=== PATIENT | female | born 1985 | race Caucasian/White ===

== ENCOUNTER → 2017-11-06 | Outpatient (REF) | payer MEDICAID | LOC: M LAB REF 12:05 | DX: F11.21 Opioid dependence, in remission (principal) ==

== ENCOUNTER → 2017-11-07 | Outpatient (CLI) | payer MEDICAID | LOC: M OUTALCOH 07:57 | DX: F11.20 Opioid dependence, uncomplicated (principal) ==

== ENCOUNTER → 2017-11-12 | Outpatient (REF) | payer MEDICAID ==
[2017-11-12 15:53] LABS: BASO # 0.1 10^3/uL (0.0-0.2); BASO % 0.7 % (0.0-1.0); EOS # 0.7 10^3/uL (0.0-0.50); EOS % 10.4 % (0.0-3.0); HEMATOCRIT 43.8 % (36.0-47.0); HEMOGLOBIN 14.5 g/dl (12.0-16.0); IMMATURE GRANULOCYTE % 0.3 % (0-3.0); LYMPH # 2.2 10^3/uL (1.5-4.5); LYMPH % 32.3 % (24.0-44.0); MEAN CORPUSCULAR HEMOGLOBIN 30.6 pg (27.0-33.0); MEAN CORPUSCULAR HGB CONC 33.1 g/dl (32.0-36.5); MEAN CORPUSCULAR VOLUME 92.4 fl (80.0-96.0); MONO # 0.6 10^3/uL (0.0-0.8); MONO % 8.8 % (0.0-5.0); NEUTROPHILS # 3.2 10^3/uL (1.8-7.7); NEUTROPHILS % 47.5 % (36.0-66.0); PLATELET COUNT, AUTOMATED 210 10^3/uL (150-450); RED BLOOD COUNT 4.74 10^6/uL (4.00-5.40); RED CELL DISTRIBUTION WIDTH 13.3 % (11.5-14.5); WHITE BLOOD COUNT 6.7 10^3/uL (4.0-10.0)
[2017-11-12 16:11] LABS: ALBUMIN/GLOBULIN RATIO 1.18 (1.00-1.93); ALKALINE PHOSPHATASE 73 U/L (45-117); ALT/SGPT 30 U/L (12-78); ANION GAP 4 MEQ/L (8-16); AST/SGOT 37 U/L (7-37); BILIRUBIN,TOTAL 0.5 MG/DL (0.2-1.0); BLOOD UREA NITROGEN 23 MG/DL (7-18); CALCIUM LEVEL 8.9 MG/DL (8.5-10.1); CARBON DIOXIDE LEVEL 30 MEQ/L (21-32); CHLORIDE LEVEL 101 MEQ/L (98-107); CREATININE FOR GFR 0.71 MG/DL (0.55-1.30); GLOMERULAR FILTRATION RATE > 60.0 (>60); GLUCOSE, FASTING 61 MG/DL (70-100); SODIUM LEVEL 135 MEQ/L (136-145); TOTAL PROTEIN 7.4 GM/DL (6.4-8.2)
[2017-11-12 16:19] LABS: POTASSIUM SERUM 5.2 MEQ/L (3.5-5.1)
[2017-11-15 08:06] LABS: HEPATITIS A IgG TOTAL Negative (Negative); HEPATITIS C QUANTITATION HCV Not Detected IU/mL (.)
== END ==
LOC: M SFHCPLAZ 12:25
DX: B18.2 Chronic viral hepatitis C (principal)

== ENCOUNTER → 2017-11-14 | Outpatient (REF) | payer MEDICAID ==
[2017-11-24 00:08] LABS: AMPHETAMINE SCREEN, URINE Negative ng/mL (Cutoff=1000); BARBITURATES SCREEN, URINE Negative ng/mL (Cutoff=200); BENZODIAZEPINES, URINE SCREEN Negative ng/mL (Cutoff=200); CANNABINOID SCREEN, URINE Negative ng/mL (Cutoff=20); COCAINE SCREEN, URINE Negative ng/mL (Cutoff=300); CREATININE, URINE 87.2 mg/dL (20.0-300.0); FENTANYL URINE SCREEN Negative pg/mL (Cutoff=2000); METHADONE, URINE SCREEN Negative ng/mL (Cutoff=300); NALOXONE RESULT Positive (.); OPIATE SCREEN, URINE Negative ng/mL (Cutoff=300); OXYCODONE, SCREEN, URINE Negative ng/mL (Cutoff=100); PCP SCREEN, URINE Negative ng/mL (Cutoff=25); SPECIFIC GRAVITY, URINE 1.022 (.); URINE BUPRENORPHINE Positive (.); URINE BUPRENORPHINE Positive (Cutoff=10); URINE BUPRENORPHINE See Final Results ng/mL (Cutoff=10); URINE BUPRENORPHINE CONFIRM 94 ng/mL (Cutoff=10); URINE NORBUPRENORPHINE Positive (.); URINE NORBUPRENORPHINE CONFIRM 120 ng/mL (Cutoff=10); pH, URINE 6.2 (4.5-8.9)
== END ==
LOC: M LAB REF 17:30
DX: F11.21 Opioid dependence, in remission (principal)

== ENCOUNTER → 2017-12-05 | Outpatient (REF) | payer MEDICAID | LOC: M LAB REF 16:49 | DX: F11.21 Opioid dependence, in remission (principal) ==

== ENCOUNTER → 2017-12-18 | Outpatient (REF) | payer MEDICAID ==
[2017-12-21 00:07] LABS: AMPHETAMINE SCREEN, URINE Negative ng/mL (Cutoff=1000); BARBITURATES SCREEN, URINE Negative ng/mL (Cutoff=200); BENZODIAZEPINES, URINE SCREEN Negative ng/mL (Cutoff=200); CANNABINOID SCREEN, URINE Negative ng/mL (Cutoff=20); COCAINE SCREEN, URINE Negative ng/mL (Cutoff=300); CREATININE, URINE 98.8 mg/dL (20.0-300.0); FENTANYL URINE SCREEN Negative pg/mL (Cutoff=2000); METHADONE, URINE SCREEN Negative ng/mL (Cutoff=300); OPIATE SCREEN, URINE Negative ng/mL (Cutoff=300); OXYCODONE, SCREEN, URINE Negative ng/mL (Cutoff=100); PCP SCREEN, URINE Negative ng/mL (Cutoff=25); SPECIFIC GRAVITY, URINE 1.025 (.); pH, URINE 5.8 (4.5-8.9)
== END ==
LOC: M LAB REF 17:29
DX: F11.21 Opioid dependence, in remission (principal)

== ENCOUNTER → 2017-12-19 | Outpatient (REF) | payer MEDICAID ==
[2017-12-22 00:07] LABS: AMPHETAMINE SCREEN, URINE Negative ng/mL (Cutoff=1000); BARBITURATES SCREEN, URINE Negative ng/mL (Cutoff=200); BENZODIAZEPINES, URINE SCREEN Negative ng/mL (Cutoff=200); CANNABINOID SCREEN, URINE Negative ng/mL (Cutoff=20); COCAINE SCREEN, URINE Negative ng/mL (Cutoff=300); CREATININE, URINE 129.6 mg/dL (20.0-300.0); FENTANYL URINE SCREEN Negative pg/mL (Cutoff=2000); METHADONE, URINE SCREEN Negative ng/mL (Cutoff=300); OPIATE SCREEN, URINE Negative ng/mL (Cutoff=300); OXYCODONE, SCREEN, URINE Negative ng/mL (Cutoff=100); PCP SCREEN, URINE Negative ng/mL (Cutoff=25); SPECIFIC GRAVITY, URINE 1.024 (.); pH, URINE 5.8 (4.5-8.9)
== END ==
LOC: M LAB REF 17:39
DX: F11.21 Opioid dependence, in remission (principal)

== ENCOUNTER → 2018-01-02 | Outpatient (REF) | payer OTHER, MEDICAID ==
[2018-01-09 08:06] LABS: AMPHETAMINE SCREEN, URINE Negative ng/mL (Cutoff=1000); BARBITURATES SCREEN, URINE Negative ng/mL (Cutoff=200); BENZODIAZEPINES, URINE SCREEN Negative ng/mL (Cutoff=200); CANNABINOID SCREEN, URINE Negative ng/mL (Cutoff=20); COCAINE SCREEN, URINE Negative ng/mL (Cutoff=300); CREATININE, URINE 112.4 mg/dL (20.0-300.0); FENTANYL URINE SCREEN Negative pg/mL (Cutoff=2000); METHADONE, URINE SCREEN Negative ng/mL (Cutoff=300); NALOXONE RESULT Negative (.); OPIATE SCREEN, URINE Negative ng/mL (Cutoff=300); OXYCODONE, SCREEN, URINE Negative ng/mL (Cutoff=100); PCP SCREEN, URINE Negative ng/mL (Cutoff=25); SPECIFIC GRAVITY, URINE 1.023 (.); URINE BUPRENORPHINE Positive (.); URINE BUPRENORPHINE Positive (Cutoff=10); URINE BUPRENORPHINE See Final Results ng/mL (Cutoff=10); URINE BUPRENORPHINE CONFIRM 54 ng/mL (Cutoff=10); URINE NORBUPRENORPHINE Positive (.); URINE NORBUPRENORPHINE CONFIRM 36 ng/mL (Cutoff=10); pH, URINE 5.6 (4.5-8.9)
== END ==
LOC: M LAB REF 09:41
DX: F11.21 Opioid dependence, in remission (principal)
CPT/HCPCS: 80362

== ENCOUNTER → 2018-01-09 | Outpatient (REF) | payer OTHER, MEDICAID ==
[2018-01-17 10:13] LABS: AMPHETAMINE SCREEN, URINE Negative ng/mL (Cutoff=1000); BARBITURATES SCREEN, URINE Negative ng/mL (Cutoff=200); BENZODIAZEPINES, URINE SCREEN Negative ng/mL (Cutoff=200); CANNABINOID SCREEN, URINE Negative ng/mL (Cutoff=20); COCAINE SCREEN, URINE Negative ng/mL (Cutoff=300); CREATININE, URINE 113.9 mg/dL (20.0-300.0); FENTANYL URINE SCREEN Negative pg/mL (Cutoff=2000); METHADONE, URINE SCREEN Negative ng/mL (Cutoff=300); NALOXONE RESULT Negative (.); OPIATE SCREEN, URINE Negative ng/mL (Cutoff=300); OXYCODONE, SCREEN, URINE Negative ng/mL (Cutoff=100); PCP SCREEN, URINE Negative ng/mL (Cutoff=25); SPECIFIC GRAVITY, URINE 1.023 (.); URINE BUPRENORPHINE Positive (.); URINE BUPRENORPHINE Positive (Cutoff=10); URINE BUPRENORPHINE See Final Results ng/mL (Cutoff=10); URINE BUPRENORPHINE CONFIRM 86 ng/mL (Cutoff=10); URINE NORBUPRENORPHINE Positive (.); URINE NORBUPRENORPHINE CONFIRM 104 ng/mL (Cutoff=10); pH, URINE 5.5 (4.5-8.9)
== END ==
LOC: M LAB REF 09:16
DX: F11.21 Opioid dependence, in remission (principal)

== ENCOUNTER → 2018-01-16 | Outpatient (REF) | payer OTHER, MEDICAID ==
[2018-01-25 00:07] LABS: AMPHETAMINE SCREEN, URINE Negative ng/mL (Cutoff=1000); BARBITURATES SCREEN, URINE Negative ng/mL (Cutoff=200); BENZODIAZEPINES, URINE SCREEN Negative ng/mL (Cutoff=200); CANNABINOID SCREEN, URINE Negative ng/mL (Cutoff=20); COCAINE SCREEN, URINE Negative ng/mL (Cutoff=300); CREATININE, URINE 123.6 mg/dL (20.0-300.0); FENTANYL URINE SCREEN Negative pg/mL (Cutoff=2000); METHADONE, URINE SCREEN Negative ng/mL (Cutoff=300); OPIATE SCREEN, URINE Negative ng/mL (Cutoff=300); OXYCODONE, SCREEN, URINE Negative ng/mL (Cutoff=100); PCP SCREEN, URINE Negative ng/mL (Cutoff=25); SPECIFIC GRAVITY, URINE 1.023 (.); URINE BUPRENORPHINE Positive (.); URINE BUPRENORPHINE Positive (Cutoff=10); URINE BUPRENORPHINE See Final Results ng/mL (Cutoff=10); URINE BUPRENORPHINE CONFIRM 150 ng/mL (Cutoff=10); URINE NORBUPRENORPHINE Positive (.); URINE NORBUPRENORPHINE CONFIRM 80 ng/mL (Cutoff=10); pH, URINE 6.1 (4.5-8.9)
== END ==
LOC: M LAB REF 09:03
DX: F11.21 Opioid dependence, in remission (principal)

== ENCOUNTER → 2018-02-25 | Outpatient (CLI) | payer OTHER ==
[2018-02-25 13:34] LABS: GLUCOSE CHALLENGE TEST 1 HOUR 91 MG/DL (LESS THAN 140)
== END ==
LOC: M LAB 11:57
DX: Z09 Encounter for follow-up examination after completed treatment for conditions other than malignant neoplasm (principal); Z86.32 Personal history of gestational diabetes
CPT/HCPCS: 82950

== ENCOUNTER → 2018-02-26 | Outpatient (REF) | payer OTHER ==
[2018-03-05 12:15] LABS: Trich vag by NAA Positive (Negative)
== END ==
LOC: M LAB REF 17:02
DX: Z36.89 Encounter for other specified antenatal screening (principal); Z3A.00 Weeks of gestation of pregnancy not specified
CPT/HCPCS: 87491

== ENCOUNTER → 2018-06-17 | Outpatient (CLI) | payer OTHER ==
[2018-06-17 15:20] LABS: GLUCOSE CHALLENGE TEST 1 HOUR 92 MG/DL (LESS THAN 140)
[2018-06-17 15:20] LABS: HEMATOCRIT 34.1 % (36.0-47.0); HEMOGLOBIN 11.7 g/dl (12.0-15.5); MEAN CORPUSCULAR HEMOGLOBIN 31.3 pg (27.0-33.0); MEAN CORPUSCULAR HGB CONC 34.3 g/dl (32.0-36.5); MEAN CORPUSCULAR VOLUME 91.2 fl (80.0-96.0); PLATELET COUNT, AUTOMATED 186 10^3/uL (150-450); RED BLOOD COUNT 3.74 10^6/uL (4.00-5.40); RED CELL DISTRIBUTION WIDTH 12.4 % (11.5-14.5); WHITE BLOOD COUNT 9.9 10^3/uL (4.0-10.0)
== END ==
LOC: M LAB 13:24
DX: Z34.82 Encounter for supervision of other normal pregnancy, second trimester (principal)
CPT/HCPCS: 82950

== ENCOUNTER → 2018-07-04 | Outpatient (REF) | payer OTHER ==
[2018-07-05 08:36] LABS: AB SCREEN (INDIRECT COOMBS)VIS 1 1
== END ==
LOC: M LAB REF 16:51
DX: O36.0931 Maternal care for other rhesus isoimmunization, third trimester, fetus 1 (principal)
CPT/HCPCS: 86901

== ENCOUNTER 2018-07-26 15:21 | Emergency (ER) | payer OTHER ==
[2018-07-26 16:37] LABS: HEMATOCRIT 32.5 % (36.0-47.0); HEMOGLOBIN 11.2 g/dl (12.0-15.5)
== END 2018-07-26 17:35 | disposition admitted as inpatient to this hospital (09) ==
LOC: M ED 15:21
DX: O26.93 Pregnancy related conditions, unspecified, third trimester (principal); S39.91XA Unspecified injury of abdomen, initial encounter; V89.2XXA Person injured in unspecified motor-vehicle accident, traffic, initial encounter
CPT/HCPCS: 76705

== ENCOUNTER 2018-07-26 17:37 | Outpatient (CLI) | payer OTHER ==
[2018-07-26 19:02] LABS: HEMATOCRIT 32.8 % (36.0-47.0); HEMOGLOBIN 11.3 g/dl (12.0-15.5); MEAN CORPUSCULAR HEMOGLOBIN 31.2 pg (27.0-33.0); MEAN CORPUSCULAR HGB CONC 34.5 g/dl (32.0-36.5); MEAN CORPUSCULAR VOLUME 90.6 fl (80.0-96.0); PLATELET COUNT, AUTOMATED 184 10^3/uL (150-450); RED BLOOD COUNT 3.62 10^6/uL (4.00-5.40); RED CELL DISTRIBUTION WIDTH 12.3 % (11.5-14.5); WHITE BLOOD COUNT 11.6 10^3/uL (4.0-10.0)
[2018-07-26 19:14] LABS: INR 0.92; PROTHROMBIN TIME 12.4 SECONDS (12.1-14.4)
[2018-07-26 19:15] LABS: FIBRINOGEN 394 MG/DL (221-452)
[2018-07-26 19:15] LABS: PARTIAL THROMBOPLASTIN TIME 25.9 SECONDS (25.4-37.6)
== END 2018-07-26 18:45 | disposition home or self-care (01) ==
LOC: M LDO 17:37
DX: Z04.1 Encounter for examination and observation following transport accident (principal); O9A.213 Injury, poisoning and certain other consequences of external causes complicating pregnancy, third trimester; V89.2XXA Person injured in unspecified motor-vehicle accident, traffic, initial encounter; Y92.89 Other specified places as the place of occurrence of the external cause; Z3A.32 32 weeks gestation of pregnancy
CPT/HCPCS: 59025

== ENCOUNTER → 2018-08-08 | Outpatient (REF) | payer OTHER ==
[~2018-08-08] MED LIST: PRENTAB9 PO; subutex PO
== END ==
LOC: M LAB REF 16:37
PROVIDERS: ATTEND Obstetrics & Gynecology
DX: Z34.83 Encounter for supervision of other normal pregnancy, third trimester (principal)

== ENCOUNTER 2018-08-14 12:14 | Outpatient (CLI) | payer OTHER ==
[~2018-08-14] VITALS: Ht 160 cm; Wt 87.5 kg
[~2018-08-14 12:14] MED LIST changes: -subutex PO
[2018-08-14 12:25] VITALS: BP 131/78
[2018-08-14] MEDS ORDERED: LR 1,000 ML IV SCH (13:30)
[2018-08-14] MEDS ORDERED: LR 800 ML IV ONE (13:45)
[2018-08-14 14:12] LABS: HEMATOCRIT 34.3 % (36.0-47.0); HEMOGLOBIN 11.6 g/dl (12.0-15.5); MEAN CORPUSCULAR HEMOGLOBIN 30.3 pg (27.0-33.0); MEAN CORPUSCULAR HGB CONC 33.8 g/dl (32.0-36.5); MEAN CORPUSCULAR VOLUME 89.6 fl (80.0-96.0); PLATELET COUNT, AUTOMATED 177 10^3/uL (150-450); RED BLOOD COUNT 3.83 10^6/uL (4.00-5.40); WHITE BLOOD COUNT 9.6 10^3/uL (4.0-10.0)
[2018-08-14 16:35] VITALS: BP 123/67
[2018-08-23] MEDS ORDERED: subutex PO (21:49)
== END 2018-08-14 17:25 | disposition home or self-care (01) ==
LOC: M LDO 12:14
PROVIDERS: ATTEND Obstetrics & Gynecology
DX: Z04.3 Encounter for examination and observation following other accident (principal); W00.0XXA Fall on same level due to ice and snow, initial encounter; O99.283 Endocrine, nutritional and metabolic diseases complicating pregnancy, third trimester; E86.0 Dehydration; Z3A.36 36 weeks gestation of pregnancy; Y92.89 Other specified places as the place of occurrence of the external cause; Y93.89 Activity, other specified; Y99.8 Other external cause status

== ENCOUNTER 2018-09-03 05:20 | Inpatient (IN) | payer OTHER ==
[~2018-09-03] VITALS: Ht 160 cm; Wt 89.8 kg
[2018-09-03] VITALS (10 sets, daily range): BP systolic 94–117; BP diastolic 50–68
[~2018-09-03 05:20] MED LIST changes: +subutex PO
[2018-09-03] MEDS ORDERED: LR 1,000 ML IV SCH ×2 (05:36→09:00)
[2018-09-03] MEDS ORDERED: LACTATED RINGER'S 1000 ML IV STA (05:36)
[2018-09-03] MEDS ORDERED: BICITRA 30ML SOLN UDC PO ONE (05:45)
[2018-09-03 06:19] LABS: HEMATOCRIT 31.7 % (36.0-47.0); HEMOGLOBIN 10.9 g/dl (12.0-15.5); MEAN CORPUSCULAR HEMOGLOBIN 29.5 pg (27.0-33.0); MEAN CORPUSCULAR HGB CONC 34.4 g/dl (32.0-36.5); MEAN CORPUSCULAR VOLUME 85.9 fl (80.0-96.0); PLATELET COUNT, AUTOMATED 182 10^3/uL (150-450); RED BLOOD COUNT 3.69 10^6/uL (4.00-5.40); WHITE BLOOD COUNT 8.7 10^3/uL (4.0-10.0)
[2018-09-03 06:34] LABS: ALT/SGPT 15 U/L (12-78); BILIRUBIN,TOTAL 0.5 MG/DL (0.2-1.0); CREATININE FOR GFR 0.68 MG/DL (0.55-1.30); GLOMERULAR FILTRATION RATE > 60.0 (>60); LDH LACTATE DEHYDROGENASE 196 U/L (84-246); URIC ACID 4.1 MG/DL (2.6-6.0)
[2018-09-03] MEDS ORDERED: ONDANSETRON 4MG/2ML VIAL (J2405) As Ordered ONE (07:13)
[2018-09-03] MEDS ORDERED: OXYTOCIN INJ 10 UNITS/ML VIAL (J2590) As Ordered ONE ×2 (07:13→10:59)
[2018-09-03] MEDS ORDERED: dexameTHASONE 4 MG/ML 1ML VIAL (J1100) As Ordered ONE (07:13)
[2018-09-03] MEDS ORDERED: OXYTOCIN DRIP 30 UNITS in APPROPRIATE DILUENT 1 EA IV SCH (07:22)
[2018-09-03] MEDS ORDERED: MORPHINE PRES-FREE INJ 10 MG/10 ML VIAL (J2274) As Ordered ONE (07:26)
[2018-09-03] MEDS ORDERED: MEASLES,MUMPS,RUBELLA VACCINE INJ (MMR-II) (90707) SC SCH (07:30)
[2018-09-03] MEDS ORDERED: METHYLERGONOVINE MALEATE 0.2 MG TAB PO PRN (07:30)
[2018-09-03] MEDS ORDERED: ONDANSETRON 4MG/2ML VIAL (J2405) IV PRN ×3 (07:30→09:00)
[2018-09-03] MEDS ORDERED: NORCO, ANEXSIA 5/325MG TABLET (HYDROcodone/ACETAMINOPHEN) PO PRN ×2 (07:30→09:00)
[2018-09-03] MEDS ORDERED: MOM 30ML SUSPENSION UDC PO PRN (07:30)
[2018-09-03] MEDS ORDERED: RHOGAM 300 MCG (1500 IU) INJ (J2790) IM SCH (07:30)
[2018-09-03] MEDS ORDERED: METOCLOPRAMIDE INJ 10MG/2ML VIAL (J2765) IV PRN (07:33)
[2018-09-03] MEDS ORDERED: NALOXONE INJ 0.4 MG/1 ML VIAL (J2310) IV PRN ×2 (07:33)
[2018-09-03] MEDS ORDERED: NALBUPHINE HCL 10 MG/ML AMP (J2300) IV PRN ×2 (07:33→09:00)
[2018-09-03] MEDS ORDERED: diphenhydrAMINE INJ 50MG/ML VIAL (J1200) IV PRN (07:33)
[2018-09-03] MEDS ORDERED: PHENYLephrine HCL 500 MCG/5 ML (100MCG/ML) SYRINGE (J2370) As Ordered ONE (08:03)
[2018-09-03] MEDS ORDERED: ePHEDrine SULFATE 25 MG/5 ML(5MG/ML) SYRINGE As Ordered ONE (08:03)
[2018-09-03] MEDS ORDERED: OXYTOCIN 30 UNITS IN 0.9% NaCl 500ML IV BAG (J2590) As Ordered ONE (08:07)
[2018-09-03 08:08] LABS: CORD GAS ABE A 2.3; CORD GAS HCO3 A 31.1 MEQ/L; CORD GAS O2 SAT A 27.3 %; CORD GAS PCO2 A 67.1 mmHg; CORD GAS PH A 7.284 UNITS; CORD GAS PO2 A 12.9 mmHg; CORD GAS SBC A 24.6 MEQ/L; CORD GAS TCO2 A 33.2 MEQ/L
[2018-09-03 08:10] LABS: CORD GAS ABE V -0.5; CORD GAS HCO3 V 25.8 MEQ/L; CORD GAS O2 SAT V 89.4 %; CORD GAS PCO2 V 48.6 mmHg; CORD GAS PH V 7.343 UNITS; CORD GAS PO2 V 43.5 mmHg; CORD GAS SBC V 23.8 MEQ/L; CORD GAS TCO2 V 27.3 MEQ/L
[2018-09-03] MEDS ORDERED: KETOROLAC 60 MG/2 ML VIAL (J1885) As Ordered ONE (08:15)
[2018-09-03 08:22] LABS: AMPHETAMINES URINE REFLEX NEGATIVE (NEGATIVE); BARBITURATES URINE REFLEX NEGATIVE (NEGATIVE); BENZODIAZEPINES URINE REFLEX NEGATIVE (NEGATIVE); CANNABINOIDS URINE REFLEX NEGATIVE (NEGATIVE); COCAINE METABOLITE URINE REFLE NEGATIVE (NEGATIVE); METHADONE URINE REFLEX NEGATIVE (NEGATIVE); OPIATES URINE REFLEX NEGATIVE (NEGATIVE); PHENCYCLIDINE URINE REFLEX NEGATIVE (NEGATIVE)
[2018-09-03] MEDS ORDERED: NORCO, ANEXSIA 5/325MG TABLET (HYDROcodone/ACETAMINOPHEN) As Ordered ONE (08:50)
[2018-09-03] MEDS ORDERED: ACETAMINOPHEN TAB 650MG DOSE (2X325MG) PO PRN (09:00)
[2018-09-03] MEDS: DOCUSATE SODIUM 100 MG CAP PO SCH ×2 (09:00→20:26)
[2018-09-03] MEDS: PRENATAL VITAMINS CHEWABLE TABLET PO SCH (09:00)
--- NOTE | 2018-09-03 09:18 | RO ---
DATE OF PROCEDURE: 09/03/2018 April is a 32-year-old female, 3, para 2-0-0-2, with a history of two prior sections who is being admitted at term for elective repeat section. PREOPERATIVE DIAGNOSIS: Term for elective repeat, section times three. POSTOPERATIVE DIAGNOSES: 1. Term for elective repeat. 2. section times three. 3. Pelvic adhesions. PROCEDURE: 1. Repeat section. 2. Revision of old scar. 3. Lysis of adhesions. SURGEON: Dr. Jeffrey Badillo SERVICENOW ADMINISTRATOR: Karolina Ojeda ANESTHESIA: Spinal. COMPLICATIONS: None. ESTIMATED BLOOD LOSS: 500 mL. FINDINGS: Live female in occiput transverse position with a nuchal cord times one. 8 and 8. weight 7 pounds 7 ounces. Normal-appearing placenta. N normal tubes and ovaries. Dense omental adhesion was found adherent to the anterior abdominal wall as well as the lower segment of the uterus. A thin uterine window was also noted. PROCEDURE: After obtaining informed consent, the patient was taken to the operating room where spinal anesthetic was found to be adequate. With the help of Karolina Ojeda, an elliptical incision was made. This was carried down to the fascia. The fascia was incised in midline fashion and carried through laterally. Superior aspect of the fascia was then grasped with two Wing clamps, tented off and dissected off the rectus muscles sharply. The inferior aspect was dissected in a similar fashion. At this point, the rectus muscle was midline fashion. The peritoneal cavity entered. Upon entering the peritoneal cavity, the omentum was found to be adherent to the anterior abdominal wall as well as lower segment of the uterus. Using the Bovie in a series of sharp dissection, the omental adhesions were removed. At this point, a Mobius skin retractor was placed. With the help of Karolina Ojeda, a low transverse uterine incision was made by the lower segment at the area of the window. The amniotic sac was then ruptured. Clear fluid. was delivered in atraumatic fashion. The nuchal cord was reduced. Cord doubly clamped and cut and the was handed over to the waiting warmer. Cord blood and cord gas were sent. Placenta removed manually. Uterus cleared of all clot and debris. The uterine incision was then repaired in two separate layers of #0 Vicryl sutures. Pelvis copiously irrigated with normal saline and suctioned out. Attention turned to the peritoneum which was closed in running fashion using #2-0 Vicryl. The fascia was closed in two separate segments of #0 Vicryl sutures. All superficial bleeders were coagulated. The skin was reapproximated in subcuticular fashion using #3-0 Vicryl on a Stevie. Steri-Strips placed. The patient tolerated the procedure well. She was then transferred to recovery room in stable condition.
[2018-09-03] MEDS: BUPRENORPHINE/NALOXONE 8-2MG SUBLINGUAL TABLET(SUBOXONE) PO SCH (10:47)
[2018-09-03] MEDS: IBUPROFEN 800 MG TAB PO SCH ×2 (15:30→23:53)
[2018-09-04 01:57] VITALS: BP 93/55
[2018-09-04 06:00] VITALS: BP 102/56
[2018-09-04 06:54] LABS: HEMATOCRIT 26.4 % (36.0-47.0); MEAN CORPUSCULAR HGB CONC 33.3 g/dl (32.0-36.5); MEAN CORPUSCULAR VOLUME 90.1 fl (80.0-96.0); PLATELET COUNT, AUTOMATED 164 10^3/uL (150-450); RED BLOOD COUNT 2.93 10^6/uL (4.00-5.40); WHITE BLOOD COUNT 8.1 10^3/uL (4.0-10.0)
[2018-09-04 06:59] LABS: HEMOGLOBIN 8.8 g/dl (12.0-15.5)
[2018-09-04] MEDS: IBUPROFEN 800 MG TAB PO SCH ×2 (08:42→16:00)
[2018-09-04] MEDS: PRENATAL VITAMINS CHEWABLE TABLET PO SCH (08:42)
[2018-09-04] MEDS: DOCUSATE SODIUM 100 MG CAP PO SCH ×2 (08:42→21:00)
[2018-09-04] MEDS: BUPRENORPHINE/NALOXONE 8-2MG SUBLINGUAL TABLET(SUBOXONE) PO SCH (08:43)
[2018-09-04 10:00] VITALS: BP 106/68
[2018-09-04 14:08] VITALS: BP 111/70
[2018-09-04 18:00] VITALS: BP 105/60
[2018-09-04 22:30] VITALS: BP 107/58
[2018-09-04] MEDS ORDERED: ACETAMINOPHEN TAB 650MG DOSE (2X325MG) PO PRN (23:15)
[2018-09-05 02:37] VITALS: BP 108/59
[2018-09-05 06:11] VITALS: BP 96/51
[2018-09-05] MEDS: IBUPROFEN 800 MG TAB PO SCH ×2 (07:11)
[2018-09-05] MEDS: BUPRENORPHINE/NALOXONE 8-2MG SUBLINGUAL TABLET(SUBOXONE) PO SCH (08:30)
[2018-09-05] MEDS: PRENATAL VITAMINS CHEWABLE TABLET PO SCH (08:30)
[2018-09-05] MEDS: DOCUSATE SODIUM 100 MG CAP PO SCH (08:30)
[2018-09-05 09:20] VITALS: BP 132/80
[2018-09-05] MEDS ORDERED: MAPA500T2 PO (10:04)
[2018-09-05] MEDS ORDERED: IBUP-1114 PO (10:04)
== END 2018-09-05 11:00 | disposition home or self-care (01) | DRG 540 ==
LOC: M LDI 05:20 → M OBS 10:33
PROVIDERS: ADMIT Obstetrics & Gynecology; ATTEND Obstetrics & Gynecology
PROC: 10D00Z1 Extraction of Products of Conception, Low, Open Approach (ICD-10-PCS; principal; 2018-09-03 07:30)
DX: O34.211 Maternal care for low transverse scar from previous cesarean delivery (principal); O32.2XX0 Maternal care for transverse and oblique lie, not applicable or unspecified; Z3A.39 39 weeks gestation of pregnancy; Z37.0 Single live birth

== ENCOUNTER → 2019-03-13 | Outpatient (REF) | payer OTHER ==
[~2019-03-13] MED LIST changes: +IBUP-1114 PO; +MAPA500T2 PO
[2019-03-13 18:09] LABS: HEMATOCRIT 36.9 % (36.0-47.0); HEMOGLOBIN 12.5 g/dl (12.0-15.5); MEAN CORPUSCULAR HEMOGLOBIN 29.5 pg (27.0-33.0); MEAN CORPUSCULAR HGB CONC 33.9 g/dl (32.0-36.5); PLATELET COUNT, AUTOMATED 201 10^3/uL (150-450); RED BLOOD COUNT 4.24 10^6/uL (4.00-5.40); WHITE BLOOD COUNT 7.8 10^3/uL (4.0-10.0)
[2019-03-13 20:05] LABS: HCG, SERUM QUANTITATIVE 194072 MIU/ML
[2019-03-14 10:43] LABS: RUBELLA IgG QUALITATIVE IMMUNE (IMMUNE)
[2019-03-14 11:14] LABS: HIV 1&2 SCREEN CENTAUR NEGATIVE (NEGATIVE)
[2019-03-14 11:16] LABS: HEPATITIS C VIRUS ABY INDEX > 11.0 INDEX (<0.8)
== END ==
LOC: M LAB REF 16:52
PROVIDERS: ATTEND Obstetrics & Gynecology
DX: Z34.81 Encounter for supervision of other normal pregnancy, first trimester (principal)

== ENCOUNTER → 2019-07-30 | Outpatient (CLI) | payer OTHER ==
[2019-07-30 10:37] LABS: HEMATOCRIT 32.1 % (36.0-47.0); HEMOGLOBIN 10.7 g/dl (12.0-15.5); MEAN CORPUSCULAR HEMOGLOBIN 29.8 pg (27.0-33.0); MEAN CORPUSCULAR HGB CONC 33.3 g/dl (32.0-36.5); MEAN CORPUSCULAR VOLUME 89.4 fl (80.0-96.0); PLATELET COUNT, AUTOMATED 170 10^3/uL (150-450); RED BLOOD COUNT 3.59 10^6/uL (4.00-5.40)
[2019-07-31 07:13] LABS: WHITE BLOOD COUNT 9.1 10^3/uL (4.0-10.0)
== END ==
LOC: M LAB 08:49
PROVIDERS: ATTEND Obstetrics & Gynecology
DX: Z34.82 Encounter for supervision of other normal pregnancy, second trimester (principal)

== ENCOUNTER 2019-09-08 23:21 | Outpatient (CLI) | payer OTHER ==
[2019-09-09 00:36] LABS: APPEARANCE, URINE CLEAR (CLEAR); BACTERIA, URINE AUTO NEGATIVE (NEGATIVE); BILIRUBIN, URINE AUTO NEGATIVE (NEGATIVE); BLOOD, URINE BLOOD NEGATIVE (NEGATIVE); COLOR, URINE YELLOW (YELLOW); GLUCOSE, URINE (UA) AUTO NEGATIVE (NEGATIVE); KETONE, URINE AUTO NEGATIVE (NEGATIVE); LEUKOCYTE ESTERASE, URINE AUTO NEGATIVE (NEGATIVE); NITRITE, URINE AUTO NEGATIVE (NEGATIVE); PROTEIN, URINE AUTO NEGATIVE (NEGATIVE); RBC, URINE AUTO 1 /HPF (0-3); SPECIFIC GRAVITY URINE AUTO 1.014 (1.002-1.035); SQUAMOUS EPITHELIAL CELL UR AU 1 /HPF (0-6); WBC, URINE AUTO 0 /HPF (0-3)
== END 2019-09-09 06:25 | disposition home or self-care (01) ==
LOC: M LDO 23:21
PROVIDERS: ATTEND Obstetrics & Gynecology
DX: O26.893 Other specified pregnancy related conditions, third trimester (principal); M54.9 Dorsalgia, unspecified; R10.2 Pelvic and perineal pain; O47.02 False labor before 37 completed weeks of gestation, second trimester; Z3A.35 35 weeks gestation of pregnancy

== ENCOUNTER → 2019-09-11 | Outpatient (REF) | payer OTHER | LOC: M LAB REF 16:42 | PROVIDERS: ATTEND Obstetrics & Gynecology | DX: Z34.83 Encounter for supervision of other normal pregnancy, third trimester (principal) ==

== ENCOUNTER 2019-10-02 06:00 | Inpatient (IN) | payer OTHER ==
[~2019-10-02] VITALS: Ht 160 cm; Wt 83.5 kg
[2019-10-02] VITALS (7 sets, daily range): BP systolic 94–120; BP diastolic 52–69
[2019-10-02] MEDS ORDERED: LACTATED RINGER'S 1000 ML IV STA (06:24)
[2019-10-02] MEDS ORDERED: ceFAZolin SOD 2 GM in IV 1 EA IV ONE (06:30)
[2019-10-02] MEDS ORDERED: BICITRA 30ML SOLN UDC PO ONE (06:30)
[2019-10-02 07:08] LABS: HEMATOCRIT 32.7 % (36.0-47.0); HEMOGLOBIN 10.7 g/dl (12.0-15.5); MEAN CORPUSCULAR HEMOGLOBIN 28.2 pg (27.0-33.0); MEAN CORPUSCULAR HGB CONC 32.7 g/dl (32.0-36.5); MEAN CORPUSCULAR VOLUME 86.1 fl (80.0-96.0); PLATELET COUNT, AUTOMATED 161 10^3/uL (150-450); WHITE BLOOD COUNT 8.6 10^3/uL (4.0-10.0)
[2019-10-02] MEDS ORDERED: OXYTOCIN INJ 10 UNITS/ML VIAL (J2590) As Ordered ONE ×3 (07:15→08:34)
[2019-10-02] MEDS ORDERED: MORPHINE PRES-FREE INJ 10 MG/10 ML VIAL (J2274) As Ordered ONE (07:18)
[2019-10-02] MEDS ORDERED: diphenhydrAMINE INJ 50MG/ML VIAL (J1200) IV PRN (08:15)
[2019-10-02] MEDS ORDERED: NALBUPHINE HCL 10 MG/ML AMP (J2300) IV PRN (08:15)
[2019-10-02] MEDS ORDERED: METOCLOPRAMIDE INJ 10MG/2ML VIAL (J2765) IV PRN (08:15)
[2019-10-02] MEDS ORDERED: NALOXONE INJ 0.4 MG/1 ML VIAL (J2310) IV PRN ×2 (08:15)
[2019-10-02] MEDS ORDERED: ONDANSETRON 4MG/2ML VIAL (J2405) IV PRN (08:15)
[2019-10-02] MEDS ORDERED: PHENYLephrine HCL 500 MCG/5 ML (100MCG/ML) SYRINGE (J2370) As Ordered ONE ×2 (08:33→08:43)
[2019-10-02] MEDS ORDERED: ONDANSETRON 4MG/2ML VIAL (J2405) As Ordered ONE (08:44)
[2019-10-02] MEDS ORDERED: OXYTOCIN DRIP 30 UNITS in IV 1 EA IV SCH (09:04)
[2019-10-02] MEDS ORDERED: ONDANSETRON 4 MG TAB (S0181) PO PRN (09:15)
[2019-10-02] MEDS ORDERED: RHOGAM 300 MCG (1500 IU) INJ (J2790) IM SCH (09:15)
[2019-10-02] MEDS ORDERED: MEASLES,MUMPS,RUBELLA VACCINE INJ (MMR-II) (90707) SC SCH (09:15)
[2019-10-02] MEDS ORDERED: MOM 30ML SUSPENSION UDC PO PRN (09:15)
[2019-10-02 09:29] LABS: CORD GAS ABE V -1.4; CORD GAS HCO3 V 26.2 MEQ/L; CORD GAS O2 SAT V 74.7 %; CORD GAS PCO2 V 54.9 mmHg; CORD GAS PH V 7.297 UNITS; CORD GAS PO2 V 31.8 mmHg; CORD GAS SBC V 22.7 MEQ/L; CORD GAS TCO2 V 27.9 MEQ/L
[2019-10-02 09:30] LABS: CORD GAS ABE A -1.5; CORD GAS HCO3 A 27.2 MEQ/L; CORD GAS O2 SAT A 40.2 %; CORD GAS PCO2 A 62.6 mmHg; CORD GAS PH A 7.256 UNITS; CORD GAS PO2 A 17.3 mmHg; CORD GAS SBC A 21.7 MEQ/L; CORD GAS TCO2 A 29.1 MEQ/L
[2019-10-02] MEDS: PERCOCET 5MG/325MG TAB PO PRN ×3 (09:35→21:04)
[2019-10-02] MEDS ORDERED: PERCOCET 5MG/325MG TAB As Ordered ONE (09:44)
[2019-10-02] MEDS: LR 1,000 ML IV SCH ×3 (10:00→22:22)
[2019-10-02] MEDS: IBUPROFEN 800 MG TAB PO PRN ×2 (11:01→18:53)
[2019-10-02] MEDS: ACETAMINOPHEN 500 MG TAB PO PRN (15:54)
[2019-10-02] MEDS: DOCUSATE SODIUM 100 MG CAP PO SCH (21:04)
[2019-10-03 00:50] VITALS: BP 108/58
[2019-10-03] MEDS ORDERED: PERCOCET PO (03:29)
[2019-10-03] MEDS: ACETAMINOPHEN 500 MG TAB PO PRN ×2 (04:45→12:19)
[2019-10-03] MEDS: IBUPROFEN 800 MG TAB PO PRN ×2 (06:14→15:02)
[2019-10-03 06:31] VITALS: BP 109/62
[2019-10-03 07:15] LABS: HEMOGLOBIN 9.3 g/dl (12.0-15.5); MEAN CORPUSCULAR HEMOGLOBIN 28.8 pg (27.0-33.0); MEAN CORPUSCULAR HGB CONC 33.2 g/dl (32.0-36.5); MEAN CORPUSCULAR VOLUME 86.7 fl (80.0-96.0); PLATELET COUNT, AUTOMATED 163 10^3/uL (150-450); RED BLOOD COUNT 3.23 10^6/uL (4.00-5.40); WHITE BLOOD COUNT 12.8 10^3/uL (4.0-10.0)
[2019-10-03] MEDS: DOCUSATE SODIUM 100 MG CAP PO SCH ×2 (08:18→20:28)
[2019-10-03] MEDS: PRENATAL VITAMINS CHEWABLE TABLET PO SCH (08:18)
[2019-10-03] MEDS: PERCOCET 5MG/325MG TAB PO PRN ×3 (08:19→20:28)
[2019-10-03 10:00] VITALS: BP 91/53
[2019-10-03 14:50] VITALS: BP 110/61
--- NOTE | 2019-10-03 16:11 | RO ---
DATE OF PROCEDURE: 10/02/2019 April is 33-year-old female, 4, para 3-0-0-3 with a history of three prior sections who is being admitted for an elective repeat section. After obtaining informed consent, the patient was taken to the operating room. PREOPERATIVE DIAGNOSIS: Term for an elective repeat section times four. POSTOPERATIVE DIAGNOSES: 1. Term for an elective repeat section times four. 2. Pelvic adhesion. PROCEDURE: 1. Repeat section. 2. Revision of old scar. 3. Lysis of adhesion. SURGEON: Dr. Badillo PORTFOLIO CONSULTANT: ANESTHESIA: Spinal COMPLICATIONS: None. ESTIMATED BLOOD LOSS: 600 mL. FINDINGS: Live male infant in occiput transverse position. 9, 9. weight 6 pounds 12 ounces. Placenta delivered manually intact. Three-vessel cord. A thin lower uterine segment noted. DESCRIPTION OF PROCEDURE: After obtaining informed consent, the patient was taken to the operating room where spinal anesthetic was found to be adequate. She was draped and prepped in the usual sterile fashion in the supine position. At this point, an elliptical incision was made. The old scar was removed. The incision was then carried down to the fascia. Fascia was incised in midline fashion and carried through laterally. Superior aspect of the fascia was then grasped with two Wing clamps, tented off and dissected off the rectus muscles sharply. The inferior aspect was dissected off in a similar fashion. Rectus muscles midline fashion. Perineum identified. Peritoneal cavity entered bluntly. Superior and inferior dissection was then done with good visualization of the bladder. At this point, a Mobius skin retractor was placed. A low transverse uterine incision was made. was delivered in atraumatic fashion. Nose and mouth bulb suctioned. Cord doubly clamped and cut, and was handed over to the waiting warmer. Cord blood and cord gas were sent. Placenta removed manually. Uterus cleared of all clot and debris. Uterine incision was then repaired in two separate layers of #0 Vicryl sutures. Omental adhesions were then taken down. The peritoneum was freed up and the peritoneum was then closed with #2-0 Vicryl suture in a running fashion. Fascia closed in two separate segment of #0 Vicryl sutures. All superficial bleeders coagulated and the skin was reapproximated in a subcuticular fashion using #3-0 Vicryl on a Stevie. Steri-Strips placed. The patient tolerated procedure well. She was then transferred to recovery room in stable condition.
[2019-10-03 17:35] VITALS: BP 90/55
[2019-10-04] MEDS: IBUPROFEN 800 MG TAB PO PRN ×2 (00:29→08:52)
[2019-10-04] MEDS: PERCOCET 5MG/325MG TAB PO PRN ×2 (00:33→06:04)
[2019-10-04 06:00] VITALS: BP 96/58
[2019-10-04] MEDS: PRENATAL VITAMINS CHEWABLE TABLET PO SCH (08:48)
[2019-10-04] MEDS: DOCUSATE SODIUM 100 MG CAP PO SCH (08:48)
[2019-10-04] MEDS ORDERED: ADACEL/BOOSTRIX VACCINE (DIPHTH/PERTUSS/ACELL/TETANUS)0.5ML SYR (90715) IM ONE (09:00)
--- NOTE | 2019-10-09 10:37 | DSES ---
DATE OF ADMISSION: 10/02/2019 DATE OF DISCHARGE: 10/04/2019 FINAL DIAGNOSIS: 1. Term for elective repeat section times four. 2. Pelvic adhesions. PROCEDURE PERFORMED DURING THIS ADMISSION: Repeat section, revision of old scar, lysis of adhesions. CONDITION ON DISCHARGE: Stable. DISCHARGE INSTRUCTIONS: The patient is instructed to call if there is any severe bleeding, pain or temperature greater than 101. BRIEF HISTORY: April is a 33-year-old female, 4, para 3-0-0-3, with a history of three prior sections who was admitted for elective repeat section. She underwent the above-noted procedure and was then transferred to [facility] for postoperative care. Postoperatively, she did well and remained afebrile throughout her hospital stay. On postoperative day number two, she was found to be in stable condition. She was then discharged home to follow up in approximately 2 weeks for an incision check with discharge instructions given.
== END 2019-10-04 13:45 | disposition home or self-care (01) | DRG 540 ==
LOC: M LDI 06:00 → M OBS 13:38
PROVIDERS: ADMIT Obstetrics & Gynecology; ATTEND Obstetrics & Gynecology
PROC: 10D00Z1 Extraction of Products of Conception, Low, Open Approach (ICD-10-PCS; principal; 2019-10-03)
DX: O34.211 Maternal care for low transverse scar from previous cesarean delivery (principal); Z3A.39 39 weeks gestation of pregnancy; Z37.0 Single live birth

== ENCOUNTER 2023-08-30 16:53 | Emergency (ER) | payer OTHER, SELFPAY ==
[~2023-08-30] VITALS: Ht 160 cm; Wt 80.7 kg
[~2023-08-30 16:53] MED LIST changes: +PERCOCET PO
[2023-08-30 17:47] LABS: RSV AMPLIFICATION NEGATIVE (NEGATIVE)
[2023-08-30] MEDS ORDERED: BENZONATATE 100MG CAPSULE PO ONE (20:20)
[2023-08-30] MEDS ORDERED: AZITHROMYCIN 250MG TABLET PO ONE (21:30)
[2023-08-30] MEDS ORDERED: ALBUTEROL SULFATE 2.5MG/0.5ML INH NEB SOLN NEB ONE (21:30)
[2023-08-30] MEDS ORDERED: AZIT-10 PO (22:04)
[2023-08-30] MEDS ORDERED: BENZ200C70 PO (22:04)
[2023-08-30] MEDS ORDERED: VENTAER INH (22:04)
[2023-08-30 22:11] VITALS: BP 144/92; TEMP 97.1; O2SAT 96
== END 2023-08-30 22:21 | disposition home or self-care (01) ==
LOC: M ED 16:53
DX: J20.9 Acute bronchitis, unspecified (principal); F17.210 Nicotine dependence, cigarettes, uncomplicated; Z79.51 Long term (current) use of inhaled steroids; Z79.2 Long term (current) use of antibiotics

== ENCOUNTER 2023-09-09 19:44 | Emergency (ER) | payer SELFPAY ==
[~2023-09-09] VITALS: Ht 160 cm; Wt 78.2 kg
[~2023-09-09 19:44] MED LIST changes: +AZIT-10 PO; +BENZ200C70 PO; +VENTAER INH
[2023-09-09 22:16] LABS: BASO # 0.1 10^3/uL (0.0-0.2); BASO % 0.4 % (0.0-1.0); EOS # 0.1 10^3/uL (0.0-0.5); EOS % 0.6 % (0.0-3.0); HEMATOCRIT 47.2 % (36.0-47.0); HEMOGLOBIN 17.6 g/dl (12.0-15.5); LYMPH # 2.1 10^3/uL (1.5-5.0); LYMPH % 17.1 % (24.0-44.0); MEAN CORPUSCULAR HEMOGLOBIN 32.2 pg (27.0-33.0); MEAN CORPUSCULAR HGB CONC 37.3 g/dl (32.0-36.5); MEAN CORPUSCULAR VOLUME 86.4 fl (80.0-96.0); MONO # 0.7 10^3/uL (0.0-0.8); MONO % 5.4 % (2.0-8.0); NEUTROPHILS # 9.6 10^3/uL (1.5-8.5); NEUTROPHILS % 76.2 % (36.0-66.0); PLATELET COUNT, AUTOMATED 338 10^3/uL (150-450); RED BLOOD COUNT 5.46 10^6/uL (4.00-5.40); WHITE BLOOD COUNT 12.6 10^3/uL (4.0-10.0)
[2023-09-09 22:37] LABS: LIPASE 67 U/L (12-53)
[2023-09-09 22:45] LABS: HCG, SERUM QUALITATIVE NEGATIVE (NEGATIVE)
[2023-09-09 22:46] LABS: ALBUMIN 4.1 G/DL (3.2-5.2); ALKALINE PHOSPHATASE 166 U/L (46-116); ALT/SGPT 19 U/L (7.0-40); AST/SGOT 14 U/L (<34); BILIRUBIN,DIRECT 0.4 MG/DL (<0.4); BILIRUBIN,TOTAL 1.6 MG/DL (0.3-1.2); BLOOD UREA NITROGEN 15 MG/DL (9-23); CALCIUM LEVEL 10.7 MG/DL (8.5-10.1); CARBON DIOXIDE LEVEL 24 MMOL/L (20-31); CHLORIDE LEVEL 91 MMOL/L (98-107); CREATININE FOR GFR 0.73 MG/DL (0.55-1.30); GLOMERULAR FILTRATION RATE > 60.0 (>60); GLUCOSE, FASTING 604 MG/DL (60-100); POTASSIUM SERUM 5.8 MMOL/L (3.5-5.1); SODIUM LEVEL 123 MMOL/L (136-145); TOTAL PROTEIN 8.2 G/DL (5.7-8.2)
[2023-09-09] MEDS ORDERED: NS 1,000 ML IV ONE (22:50)
[2023-09-09] MEDS ORDERED: ONDANSETRON 4MG 2ML VIAL IV ONE (23:05)
[2023-09-09 23:13] LABS: ACETONE/KETONE 1.05 MMOL/L (0.02-0.27)
[2023-09-09 23:21] LABS: VENOUS BASE EXCESS -1.4 (-2.0-2.0); VENOUS HCO3 20.1 MMOL/L (23.0-27.0); VENOUS O2 SATURATION 99.2 % (60.0-80.0); VENOUS PARTIAL PRESSURE CO2 27.8 mmHg (38.0-50.0); VENOUS PH 7.476 UNITS (7.330-7.430); VENOUS STANDARD HCO3 23.4 MMOL/L; VENOUS TOTAL CO2 20.9 MMOL/L (24.0-28.0)
[2023-09-09 23:49] LABS: OSMOLALITY SERUM 297 MOSM/KG (275-295)
[2023-09-09] MEDS ORDERED: HumuLIN R (REGULAR) INSULIN (NovoLIN R) **100U/ML** PER UNIT IV STA (23:51)
[2023-09-09 23:57] LABS: RSV AMPLIFICATION NEGATIVE (NEGATIVE)
[2023-09-10] MEDS ORDERED: KETOROLAC 30 MG/ML 1ML VIAL IV ONE (00:05)
[2023-09-10] MEDS ORDERED: METF500T13 PO (01:25)
[2023-09-10] MEDS ORDERED: metFORMIN (GLUCOPHAGE) 500MG TAB PO ONE (01:25)
[2023-09-10] MEDS ORDERED: CEPH500C PO (01:25)
[2023-09-10] MEDS ORDERED: CEPHALEXIN 500 MG CAP PO ONE (01:25)
[2023-09-10 01:30] VITALS: BP 120/97; TEMP 98.3; O2SAT 98
[2023-09-10 02:09] LABS: HEMOGLOBIN A1c 9.3 % (4.0-6.0)
== END 2023-09-10 01:41 | disposition home or self-care (01) ==
LOC: M ED 19:44
DX: N39.0 Urinary tract infection, site not specified (principal); E11.65 Type 2 diabetes mellitus with hyperglycemia; F17.200 Nicotine dependence, unspecified, uncomplicated; Z79.2 Long term (current) use of antibiotics; Z79.4 Long term (current) use of insulin
CPT/HCPCS: 80048; 80076; 81001; 82010; 82803; 83036; 83690; 83930; 84703; 85025; 87086; 87631; 96361; 96374; 96375; 99284; J1815; J1885; J2405

== ENCOUNTER 2024-06-08 15:35 | Emergency (ER) | payer OTHER, SELFPAY ==
[~2024-06-08] VITALS: Ht 160 cm; Wt 82.9 kg
[~2024-06-08 15:35] MED LIST changes: +CEPH500C PO; +METF500T13 PO
[2024-06-08 19:10] LABS: APPEARANCE, URINE HAZY (CLEAR); BACTERIA, URINE AUTO NEGATIVE (NEGATIVE); BILIRUBIN, URINE AUTO NEGATIVE (NEGATIVE); BLOOD, URINE BLOOD NEGATIVE (NEGATIVE); COLOR, URINE YELLOW (YELLOW); GLUCOSE, URINE (UA) AUTO NEGATIVE (NEGATIVE); KETONE, URINE AUTO TRACE mg/dL (NEGATIVE); LEUKOCYTE ESTERASE, URINE AUTO TRACE (NEGATIVE); MUCUS, URINE SMALL (NEGATIVE); NITRITE, URINE AUTO NEGATIVE (NEGATIVE); PROTEIN, URINE AUTO NEGATIVE (NEGATIVE); RBC, URINE AUTO 1 /HPF (0-3); SPECIFIC GRAVITY URINE AUTO 1.021 (1.002-1.035); SQUAMOUS EPITHELIAL CELL UR AU 10 /HPF (0-6); UROBILINOGEN, URINE AUTO 0.2 mg/dL (0.0-2.0); WBC, URINE AUTO 6 /HPF (0-3)
[2024-06-08] MEDS: ONDANSETRON 4MG ORAL DISINTEGRATING TAB PO ONE (20:47)
[2024-06-08 21:28] VITALS: BP 116/64; TEMP 97.7; O2SAT 95
== END 2024-06-08 21:31 | disposition home or self-care (01) ==
LOC: M ED 15:35
DX: K59.00 Constipation, unspecified (principal); E11.9 Type 2 diabetes mellitus without complications

== ENCOUNTER → 2025-04-23 | Outpatient (CLI) | payer MEDICAID | LOC: M OUTALCOH 09:46 | PROVIDERS: ATTEND Psychiatry & Neurology Psychiatry | DX: F11.20 Opioid dependence, uncomplicated (principal); Z72.0 Tobacco use ==

== ENCOUNTER → 2025-05-05 | Outpatient (REF) | payer MEDICAID ==
[2025-05-05 17:22] LABS: BASO # 0.0 10^3/uL (0.0-0.2); BASO % 0.3 % (0.0-1.0); EOS # 0.2 10^3/uL (0.0-0.5); EOS % 3.8 % (0.0-3.0); LYMPH # 1.7 10^3/uL (1.5-5.0); LYMPH % 29.4 % (24.0-44.0); MONO # 0.3 10^3/uL (0.0-0.8); MONO % 5.7 % (2.0-8.0); NEUTROPHILS # 3.5 10^3/uL (1.5-8.5); NEUTROPHILS % 60.6 % (36.0-66.0); PLATELET COUNT, AUTOMATED 194 10^3/uL (150-450)
[2025-05-05 18:32] LABS: ALT/SGPT 24 U/L (7.0-40); AST/SGOT 26 U/L (<34); CALCIUM LEVEL 9.1 MG/DL (8.5-10.1); CARBON DIOXIDE LEVEL 26 MMOL/L (20-31); CHLORIDE LEVEL 101 MMOL/L (98-107); CHOLESTEROL LEVEL 172 MG/DL (<200); CHOLESTEROL RISK RATIO 2.88 (<5); CREATININE FOR GFR 0.65 MG/DL (0.55-1.30); FREE T4 1.26 NG/DL (0.89-1.76); GLOMERULAR FILTRATION RATE > 90.0 (>60); LDL CHOLESTEROL 92.9 MG/DL (<100); NON-HDL-C 112.3 MG/DL; POTASSIUM SERUM 5.6 MMOL/L (3.5-5.1); SODIUM LEVEL 132 MMOL/L (136-145); TRIGLYCERIDES LEVEL 97 MG/DL (<150)
== END ==
LOC: M LAB REF 16:29
PROVIDERS: ATTEND Family Medicine Addiction Medicine
DX: E11.9 Type 2 diabetes mellitus without complications (principal); Z79.4 Long term (current) use of insulin; E07.9 Disorder of thyroid, unspecified

== ENCOUNTER → 2025-05-18 | Outpatient (REF) | payer MEDICAID | LOC: M LAB REF 17:13 | PROVIDERS: ATTEND Physician Assistant Medical | DX: B34.9 Viral infection, unspecified (principal) ==

== ENCOUNTER 2025-07-02 14:55 | Inpatient (IN) | payer MEDICAID ==
[~2025-07-02] VITALS: Ht 160 cm; Wt 67.7 kg
[2025-07-02] MEDS ORDERED: BUPR8SUB SL (15:16)
[2025-07-02] MEDS ORDERED: LANTINJ4 SC (15:16)
[2025-07-02] MEDS ORDERED: INSU100I24 SC (15:16)
[2025-07-02 16:28] LABS: BASO # 0.1 10^3/uL (0.0-0.2); BASO % 0.4 % (0.0-1.0); EOS # 0.0 10^3/uL (0.0-0.5); EOS % 0.2 % (0.0-3.0); LYMPH # 2.8 10^3/uL (1.5-5.0); LYMPH % 16.3 % (24.0-44.0); MONO # 0.9 10^3/uL (0.0-0.8); MONO % 5.3 % (2.0-8.0); NEUTROPHILS # 13.4 10^3/uL (1.5-8.5); NEUTROPHILS % 77.3 % (36.0-66.0); PLATELET COUNT, AUTOMATED 308 10^3/uL (150-450)
[2025-07-02 16:29] LABS: VENOUS BASE EXCESS -17.3 (-2.0-2.0); VENOUS HCO3 10.6 MMOL/L (23.0-27.0); VENOUS O2 SATURATION 86.1 % (60.0-80.0); VENOUS PARTIAL PRESSURE CO2 32.0 mmHg (38.0-50.0); VENOUS PARTIAL PRESSURE O2 62.4 mmHg (30.0-50.0); VENOUS STANDARD HCO3 12.0 MMOL/L; VENOUS TOTAL CO2 11.5 MMOL/L (24.0-28.0)
[2025-07-02 16:31] LABS: VENOUS PH 7.136 UNITS (7.330-7.430)
[2025-07-02] MEDS ORDERED: ONDANSETRON 4MG/2ML VIAL IV ONE (16:35)
[2025-07-02] MEDS ORDERED: INSULIN IV RATE CHANGE DOCUMENTATION ML/HR XX SCH (16:40)
[2025-07-02] MEDS: ONDANSETRON 4MG/2ML VIAL IV ONE ×2 (16:48→21:04)
[2025-07-02] MEDS: NS (Normal Saline) 0.9% 1,000 ML IV ONE ×2 (16:48→16:49)
[2025-07-02] MEDS: INSULIN REGULAR IN 0.9 % NACL 100 UNIT in IV 1 EA IV SCH ×2 (16:56→20:35)
[2025-07-02 17:03] LABS: ALT/SGPT 30 U/L (7.0-40); AST/SGOT 34 U/L (<34); CALCIUM LEVEL 9.7 MG/DL (8.5-10.1); CARBON DIOXIDE LEVEL 11 MMOL/L (20-31); CHLORIDE LEVEL 90 MMOL/L (98-107); CREATININE FOR GFR 0.80 MG/DL (0.55-1.30); GLOMERULAR FILTRATION RATE > 90.0 (>60); POTASSIUM SERUM 5.8 MMOL/L (3.5-5.1); SODIUM LEVEL 128 MMOL/L (136-145)
[2025-07-02 17:17] LABS: OSMOLALITY SERUM 327 MOSM/KG (275-295)
[2025-07-02 17:24] LABS: ACETONE/KETONE > 4.50 MMOL/L (0.02-0.27)
[2025-07-02] MEDS ORDERED: HOME MED LIST COMPLETE! XX SCH (17:40)
[2025-07-02 17:57] LABS: KETONE, URINE AUTO RFX 2+ mg/dL (NEGATIVE); LEUKOCYTE ESTERASE UR AUTO RFX NEGATIVE (NEGATIVE); MUCUS, URINE RFX SMALL (NEGATIVE); NITRITE, URINE AUTO RFX NEGATIVE (NEGATIVE); RBC, URINE AUTO RFX 3 /HPF (0-3); SQUAM EPITHELIAL CELL UR AURFX 0 /HPF (0-6); WBC, URINE AUTO RFX 1 /HPF (0-3)
[2025-07-02 18:39] LABS: HCG, SERUM QUALITATIVE NEGATIVE (NEGATIVE)
[2025-07-02] MEDS ORDERED: KCL 40MEQ in NS 1000ML 1,000 ML IV SCH (18:40)
[2025-07-02 18:42] LABS: CALCIUM LEVEL 8.0 MG/DL (8.5-10.1); CARBON DIOXIDE LEVEL < 10.0 MMOL/L (20-31); CHLORIDE LEVEL 103 MMOL/L (98-107); CREATININE FOR GFR 0.64 MG/DL (0.55-1.30); GLOMERULAR FILTRATION RATE > 90.0 (>60); POTASSIUM SERUM 5.1 MMOL/L (3.5-5.1); SODIUM LEVEL 135 MMOL/L (136-145)
[2025-07-02] MEDS ORDERED: ISOVUE-370 76% 100 ML VIAL As Ordered ONE (18:45)
[2025-07-02] MEDS: KCL 40MEQ IN D5/0.45NS 1000ML 1,000 ML IV SCH ×2 (19:14→20:15)
[2025-07-02] MEDS: PANTOPRAZOLE 40MG VIAL IV SCH (19:30)
[2025-07-02 20:30] VITALS: BP 120/71; TEMP 97.8; O2SAT 98
[2025-07-02 21:00] VITALS: BP 114/72; O2SAT 97
[2025-07-02] MEDS: INSULIN IV RATE CHANGE DOCUMENTATION ML/HR XX SCH (21:00)
[2025-07-02 22:00] VITALS: BP 115/76; O2SAT 96
[2025-07-02 23:00] VITALS: BP 114/67; O2SAT 96
[2025-07-02 23:00] LABS: CALCIUM LEVEL 7.6 MG/DL (8.5-10.1); CARBON DIOXIDE LEVEL 18 MMOL/L (20-31); CHLORIDE LEVEL 106 MMOL/L (98-107); CREATININE FOR GFR 0.60 MG/DL (0.55-1.30); GLOMERULAR FILTRATION RATE > 90.0 (>60); PHOSPHORUS LEVEL 1.9 MG/DL (2.5-4.9); POTASSIUM SERUM 5.3 MMOL/L (3.5-5.1); SODIUM LEVEL 135 MMOL/L (136-145)
[2025-07-02] MEDS: ACETAMINOPHEN 325 MG TAB PO ONE (23:22)
[2025-07-02] MEDS: PANTOPRAZOLE 40MG VIAL IV ONE (23:23)
[2025-07-03] VITALS (9 sets, daily range): BP systolic 92–110; BP diastolic 53–79; TEMP 97.2–98.4; O2SAT 95–99
[2025-07-03] MEDS: SODIUM PHOSPHATE INJ 30 MMOL in D5W 500 ML IV ONE (00:56)
[2025-07-03 03:14] LABS: CALCIUM LEVEL 7.2 MG/DL (8.5-10.1); CARBON DIOXIDE LEVEL 19 MMOL/L (20-31); CHLORIDE LEVEL 105 MMOL/L (98-107); CREATININE FOR GFR 0.62 MG/DL (0.55-1.30); GLOMERULAR FILTRATION RATE > 90.0 (>60); PHOSPHORUS LEVEL 4.3 MG/DL (2.5-4.9); POTASSIUM SERUM 4.9 MMOL/L (3.5-5.1); SODIUM LEVEL 134 MMOL/L (136-145)
[2025-07-03 07:29] LABS: CALCIUM LEVEL 7.6 MG/DL (8.5-10.1); CARBON DIOXIDE LEVEL 20 MMOL/L (20-31); CHLORIDE LEVEL 106 MMOL/L (98-107); CREATININE FOR GFR 0.59 MG/DL (0.55-1.30); GLOMERULAR FILTRATION RATE > 90.0 (>60); PHOSPHORUS LEVEL 3.8 MG/DL (2.5-4.9); POTASSIUM SERUM 4.8 MMOL/L (3.5-5.1); SODIUM LEVEL 136 MMOL/L (136-145)
[2025-07-03 07:31] LABS: FREE T4 0.93 NG/DL (0.89-1.76)
[2025-07-03] MEDS: ENOXAPARIN 40 MG/0.4 ML SYRINGE (J1650 PER 10MG) SC SCH (08:11)
[2025-07-03] MEDS: ACETAMINOPHEN 325 MG TAB PO PRN (08:11)
[2025-07-03] MEDS ORDERED: GLUCOSE 4 GM CHEW PO PRN (09:30)
[2025-07-03] MEDS ORDERED: GLUCAGON INJ 1 MG VIAL SC PRN (09:30)
[2025-07-03] MEDS ORDERED: DEXTROSE 50% 50 ML SYRINGE IV PRN (09:30)
[2025-07-03] MEDS: LanTUS (INSULIN GLARGINE INJ) 1 UNITS/0.01 ML SC ONE (10:04)
[2025-07-03 10:07] LABS: ESTIMATED AVERAGE GLUCOSE 295.0 MG/DL (60-110)
[2025-07-03 10:56] LABS: CALCIUM LEVEL 7.6 MG/DL (8.5-10.1); CARBON DIOXIDE LEVEL 19 MMOL/L (20-31); CHLORIDE LEVEL 107 MMOL/L (98-107); CREATININE FOR GFR 0.59 MG/DL (0.55-1.30); GLOMERULAR FILTRATION RATE > 90.0 (>60); PHOSPHORUS LEVEL 2.4 MG/DL (2.5-4.9); POTASSIUM SERUM 4.8 MMOL/L (3.5-5.1); SODIUM LEVEL 136 MMOL/L (136-145)
[2025-07-03] MEDS: ONDANSETRON 4MG/2ML VIAL IV PRN (11:04)
[2025-07-03] MEDS: SODIUM PHOSPHATE INJ 20 MMOL in D5W 250 ML IV ONE (13:25)
[2025-07-03] MEDS: INSULIN LISPRO (NovoLOG) PER UNIT SC SCH ×3 (13:25→20:45)
[2025-07-03] MEDS ORDERED: BLOO-218 MC ×2 (16:02)
[2025-07-03] MEDS ORDERED: BLOO-217 MC (16:02)
[2025-07-03] MEDS ORDERED: TIRZ2.5P SQ (16:04)
[2025-07-03 16:13] LABS: CALCIUM LEVEL 7.5 MG/DL (8.5-10.1); CARBON DIOXIDE LEVEL 21 MMOL/L (20-31); CHLORIDE LEVEL 102 MMOL/L (98-107); CREATININE FOR GFR 0.61 MG/DL (0.55-1.30); GLOMERULAR FILTRATION RATE > 90.0 (>60); POTASSIUM SERUM 4.9 MMOL/L (3.5-5.1); SODIUM LEVEL 132 MMOL/L (136-145)
[2025-07-03 16:57] LABS: HEPATITIS C VIRUS ABY INDEX > 11.00 INDEX (<0.8)
[2025-07-03] MEDS: FLUCONAZOLE 50 MG TABLET PO SCH (21:47)
[2025-07-04 04:07] VITALS: BP 92/40; TEMP 98.7; O2SAT 96
[2025-07-04 06:17] LABS: PLATELET COUNT, AUTOMATED 182 10^3/uL (150-450)
[2025-07-04] MEDS: LanTUS (INSULIN GLARGINE INJ) 1 UNITS/0.01 ML SC ONE ×2 (09:00→10:46)
[2025-07-04] MEDS ORDERED: LanTUS (INSULIN GLARGINE INJ) 1 UNITS/0.01 ML SC SCH (09:00)
[2025-07-04] MEDS: NS (Normal Saline) 0.9% 1,000 ML IV ONE (09:23)
[2025-07-04] MEDS: INSULIN LISPRO (NovoLOG) PER UNIT SC SCH (09:23)
[2025-07-04 09:24] VITALS: BP 110/60
[2025-07-04] MEDS: MIDODRINE 5 MG TAB PO ONE (09:24)
[2025-07-04 09:26] LABS: BASO # 0.0 10^3/uL (0.0-0.2); BASO % 0.6 % (0.0-1.0); EOS # 0.1 10^3/uL (0.0-0.5); EOS % 1.7 % (0.0-3.0); LYMPH # 2.0 10^3/uL (1.5-5.0); LYMPH % 36.0 % (24.0-44.0); MONO # 0.4 10^3/uL (0.0-0.8); MONO % 6.6 % (2.0-8.0); NEUTROPHILS # 3.0 10^3/uL (1.5-8.5); NEUTROPHILS % 54.7 % (36.0-66.0); PLATELET COUNT, AUTOMATED 213 10^3/uL (150-450)
[2025-07-04 09:44] LABS: CALCIUM LEVEL 8.5 MG/DL (8.5-10.1); CARBON DIOXIDE LEVEL 27 MMOL/L (20-31); CHLORIDE LEVEL 102 MMOL/L (98-107); CREATININE FOR GFR 0.63 MG/DL (0.55-1.30); GLOMERULAR FILTRATION RATE > 90.0 (>60); MAGNESIUM LEVEL 1.7 MG/DL (1.8-2.4); PHOSPHORUS LEVEL 3.6 MG/DL (2.5-4.9); POTASSIUM SERUM 4.7 MMOL/L (3.5-5.1); SODIUM LEVEL 135 MMOL/L (136-145)
[2025-07-04] MEDS ORDERED: HUMA100I5 SC (11:06)
[2025-07-04] MEDS ORDERED: LANTINJ4 SC (11:07)
[2025-07-04] MEDS ORDERED: FLAS1KIT2 MC (11:51)
[2025-07-04] MEDS ORDERED: BLOO-259 MC (11:51)
[2025-07-04] MEDS ORDERED: CEFD300CAP PO (12:11)
[2025-07-04 12:12] VITALS: BP 100/60; TEMP 98.4; O2SAT 97
[2025-07-04] MEDS: MAG SULF 1GM/100ML (MAG RUN) 1 GM in IV 1 EA IV ONE (12:45)
== END 2025-07-04 15:43 | disposition home or self-care (01) | DRG 420 ==
LOC: M ED 14:55 → M ED INP 19:10 → M ICU 20:04 → M MSPAV 07-03 21:52
PROVIDERS: ADMIT Internal Medicine Pulmonary Disease; ATTEND General Practice
DX: E11.10 Type 2 diabetes mellitus with ketoacidosis without coma (principal); I95.9 Hypotension, unspecified; K74.60 Unspecified cirrhosis of liver; E87.5 Hyperkalemia; E87.1 Hypo-osmolality and hyponatremia; E86.0 Dehydration; S22.31XA Fracture of one rib, right side, initial encounter for closed fracture; E05.90 Thyrotoxicosis, unspecified without thyrotoxic crisis or storm; X58.XXXA Exposure to other specified factors, initial encounter; Y92.9 Unspecified place or not applicable; Z79.4 Long term (current) use of insulin; Z79.899 Other long term (current) drug therapy

== ENCOUNTER 2025-07-30 10:54 | Inpatient (IN) | payer MEDICAID ==
[2025-07-30] VITALS (36 sets, daily range): BP systolic 74–105; BP diastolic 50–68; TEMP 98.9–100.8; O2SAT 98–100
[~2025-07-30 10:54] MED LIST changes: +BLOO-217 MC; +BLOO-218 MC; +BLOO-259 MC; +BUPR8SUB SL; +CEFD300CAP PO; +FLAS1KIT2 MC; +HUMA100I5 SC; +INSU100I24 SC; +LANTINJ4 SC; +TIRZ2.5P SQ
[2025-07-30] MEDS: ETOMIDATE 20 MG/10 ML VIAL IV STA (11:28)
[2025-07-30] MEDS: ROCURONIUM BROMIDE 50MG/5ML VIAL IV ONE (11:28)
[2025-07-30] MEDS ORDERED: MIDAZOLAM 5 MG/ML 1 ML VIAL IV PRN (11:30)
[2025-07-30] MEDS: MIDAZOLAM INJ 2 MG/2 ML VIAL IV STA ×2 (11:30→11:35)
[2025-07-30] MEDS: NS (Normal Saline) 0.9% 2,290 ML in IV 1 EA IV STA (11:34)
[2025-07-30] MEDS: MIDAZOLAM 100MG/100ML-0.9%NACL 100 MG in IV 1 EA IV STA (11:39)
[2025-07-30] MEDS ORDERED: FENTANYL DRIP LOCK BOX KEY 1 EACH XX PRN ×2 (11:40→16:10)
[2025-07-30] MEDS: MIDAZOLAM 100MG/100ML-0.9%NACL 100 MG in IV 1 EA IV SCH (11:40)
[2025-07-30] MEDS: MIDAZOLAM INJ 2 MG/2 ML VIAL IV ONE (11:40)
[2025-07-30] MEDS ORDERED: ISOVUE-370 76% 100 ML VIAL As Ordered ONE (11:57)
[2025-07-30 11:58] LABS: PLATELET COUNT, AUTOMATED 350 10^3/uL (150-450)
[2025-07-30] MEDS ORDERED: HOME MED LIST COMPLETE! XX SCH (12:00)
[2025-07-30] MEDS: fentaNYL CITRATE/NaCl 1,000 MCG in IV 1 EA IV SCH (12:07)
[2025-07-30 12:08] LABS: ABG BASE EXCESS -31.3 (-2.0-2.0); ABG HCO3 4.0 MMOL/L (22.0-26.0); ABG O2 SATURATION 99.8 % (95.0-99.0); ABG PARTIAL PRESSURE CO2 29.4 mmHg (35.0-45.0); ABG PARTIAL PRESSURE O2 485.2 mmHg (75.0-100.0); ABG STANDARD HCO3 4.6 MMOL/L. (22.0-26.0); ABG TOTAL CO2 4.9 MMOL/L (22.0-29.0)
[2025-07-30 12:11] LABS: ABG pH (ARTERIAL) 6.749 UNITS (7.350-7.450)
[2025-07-30] MEDS: SODIUM BICARBONATE 8.4% INJ 50ML SYRINGE IV STA ×4 (12:17→13:26)
[2025-07-30 12:20] LABS: INR 1.2
[2025-07-30 12:24] LABS: ATYPICAL LYMPH 1 % (0-5); LYMPHOCYTES 18 % (16-44); MONOCYTES 6 % (0-5); MYELOCYTES 1 % (0-0); NEUTROPHILS 66 % (28-66)
[2025-07-30 12:25] LABS: PLATELET ESTIMATE NORMAL (NORMAL)
[2025-07-30 12:26] LABS: C REACTIVE PROTEIN QUANTITATIV 2.66 MG/DL (<1.0)
[2025-07-30 12:38] LABS: KETONE, URINE AUTO RFX 1+ mg/dL (NEGATIVE); MUCUS, URINE RFX SMALL (NEGATIVE); NITRITE, URINE AUTO RFX NEGATIVE (NEGATIVE); RBC, URINE AUTO RFX 8 /HPF (0-3); SQUAM EPITHELIAL CELL UR AURFX 10 /HPF (0-6)
[2025-07-30 12:39] LABS: LEUKOCYTE ESTERASE UR AUTO RFX 2+ (NEGATIVE); WBC, URINE AUTO RFX 32 /HPF (0-3)
[2025-07-30] MEDS: PIPERACILLIN/TAZOBACTAM SOD 4.5 GM in DEXTROSE 5% (D5W) ADV/MINI-BAG 50 ML IV ONE (12:39)
[2025-07-30] MEDS ORDERED: INSULIN IV RATE CHANGE DOCUMENTATION ML/HR XX SCH ×2 (12:40→14:25)
[2025-07-30 12:41] LABS: ACETONE/KETONE > 4.50 MMOL/L (0.02-0.27); ALT/SGPT 31 U/L (7.0-40); AST/SGOT 66 U/L (<34); CALCIUM LEVEL 9.9 MG/DL (8.5-10.1); CARBON DIOXIDE LEVEL < 10.0 MMOL/L (20-31); CHLORIDE LEVEL 82 MMOL/L (98-107); CREATININE FOR GFR 1.78 MG/DL (0.55-1.30); GLOMERULAR FILTRATION RATE 36.8 (>60); POTASSIUM SERUM 7.4 MMOL/L (3.5-5.1); SODIUM LEVEL 118 MMOL/L (136-145)
[2025-07-30] MEDS: PATIROMER SORBITEX CALCIUM 8.4GM POWDER PACKET PO STA (12:44)
[2025-07-30] MEDS: CALCIUM GLUCONATE 1,000 MG/10 ML VIAL IV ONE (12:50)
[2025-07-30 13:06] LABS: OSMOLALITY SERUM 373 MOSM/KG (275-295)
[2025-07-30] MEDS: INSULIN REGULAR IN 0.9 % NACL 100 UNIT in IV 1 EA IV SCH ×2 (13:09→16:13)
[2025-07-30 13:12] LABS: MAGNESIUM LEVEL 3.5 MG/DL (1.8-2.4); PHOSPHORUS LEVEL 13.9 MG/DL (2.5-4.9)
[2025-07-30] MEDS: NOREPINEPHRINE 4MG IN D5 250ML 4 MG in IV 1 EA IV SCH ×2 (13:18→22:01)
[2025-07-30] MEDS: CALCIUM GLUCONATE 1,000 MG in DEXTROSE 5% (D5W) MINI-BAG PLU 100 ML IV ONE ×2 (13:27→13:29)
[2025-07-30] MEDS: VANCOMYCIN HCL 1,000 MG, VIAL MATE ADAPTER 1 EACH in NS 250 ML IV ONE (13:48)
[2025-07-30] MEDS: MIDAZOLAM INJ 2 MG/2 ML VIAL IV PRN (14:52)
[2025-07-30 15:39] LABS: ESTIMATED AVERAGE GLUCOSE 295.0 MG/DL (60-110)
[2025-07-30 15:47] LABS: VENOUS BASE EXCESS -18.0 (-2.0-2.0); VENOUS HCO3 8.2 MMOL/L (23.0-27.0); VENOUS O2 SATURATION 99.2 % (60.0-80.0); VENOUS PARTIAL PRESSURE CO2 22.1 mmHg (38.0-50.0); VENOUS PARTIAL PRESSURE O2 159.8 mmHg (30.0-50.0); VENOUS PH 7.187 UNITS (7.330-7.430); VENOUS STANDARD HCO3 11.6 MMOL/L; VENOUS TOTAL CO2 8.9 MMOL/L (24.0-28.0)
[2025-07-30] MEDS: AZITHROMYCIN INJ 500 MG, VIAL MATE ADAPTER 1 EACH in NS 250 ML IV SCH (16:23)
[2025-07-30] MEDS: PANTOPRAZOLE 40MG VIAL IV SCH (16:23)
[2025-07-30] MEDS: NS (Normal Saline) 0.9% 1,000 ML IV SCH (16:24)
[2025-07-30] MEDS: ENOXAPARIN 40 MG/0.4 ML SYRINGE (J1650 PER 10MG) SC SCH (16:24)
[2025-07-30 16:46] LABS: ALT/SGPT 25 U/L (7.0-40); AST/SGOT 45 U/L (<34); CALCIUM LEVEL 9.4 MG/DL (8.5-10.1); CARBON DIOXIDE LEVEL < 10.0 MMOL/L (20-31); CHLORIDE LEVEL 101 MMOL/L (98-107); CREATININE FOR GFR 1.45 MG/DL (0.55-1.30); GLOMERULAR FILTRATION RATE 47.1 (>60); PHOSPHORUS LEVEL 5.5 MG/DL (2.5-4.9); POTASSIUM SERUM 4.8 MMOL/L (3.5-5.1); SODIUM LEVEL 138 MMOL/L (136-145)
[2025-07-30] MEDS: KCL 40MEQ in NS 1000ML 1,000 ML IV SCH (17:39)
[2025-07-30] MEDS: KCL 20MEQ IN 100ML SWI (KRUN) 20 MEQ in IV 1 EA IV ONE (17:39)
[2025-07-30 19:29] LABS: CALCIUM LEVEL 9.2 MG/DL (8.5-10.1); CARBON DIOXIDE LEVEL < 10.0 MMOL/L (20-31); CHLORIDE LEVEL 108 MMOL/L (98-107); CREATININE FOR GFR 1.42 MG/DL (0.55-1.30); GLOMERULAR FILTRATION RATE 48.3 (>60); PHOSPHORUS LEVEL 2.2 MG/DL (2.5-4.9); POTASSIUM SERUM 4.2 MMOL/L (3.5-5.1); SODIUM LEVEL 144 MMOL/L (136-145)
[2025-07-30] MEDS: cefTRIAXone SOD 1 GM in DEXTROSE 5% (D5W) ADV/MINI-BAG 50 ML IV SCH (19:42)
[2025-07-30] MEDS: INSULIN IV RATE CHANGE DOCUMENTATION ML/HR XX SCH (19:54)
[2025-07-30] MEDS: LR 1,000 ML IV ONE (20:39)
[2025-07-30 23:03] LABS: CALCIUM LEVEL 8.7 MG/DL (8.5-10.1); CARBON DIOXIDE LEVEL 24.0 MMOL/L (20-31); CHLORIDE LEVEL 110.0 MMOL/L (98-107); CREATININE FOR GFR 1.41 MG/DL (0.55-1.30); GLOMERULAR FILTRATION RATE 48.7 (>60); POTASSIUM SERUM 4.6 MMOL/L (3.5-5.1); SODIUM LEVEL 146.0 MMOL/L (136-145)
[2025-07-31] VITALS (70 sets, daily range): BP systolic 87–136; BP diastolic 50–80; TEMP 98.4–100.1; O2SAT 98–100
[2025-07-31] MEDS: LR 500 ML IV ONE (00:28)
[2025-07-31 02:53] LABS: CALCIUM LEVEL 8.0 MG/DL (8.5-10.1); CARBON DIOXIDE LEVEL 23.0 MMOL/L (20-31); CHLORIDE LEVEL 111.0 MMOL/L (98-107); CREATININE FOR GFR 1.48 MG/DL (0.55-1.30); GLOMERULAR FILTRATION RATE 45.9 (>60); POTASSIUM SERUM 5.3 MMOL/L (3.5-5.1); SODIUM LEVEL 145.0 MMOL/L (136-145)
[2025-07-31] MEDS: MIDAZOLAM 100MG/100ML-0.9%NACL 100 MG in IV 1 EA IV SCH (02:55)
[2025-07-31] MEDS: D5W/LR 1,000 ML IV SCH (03:24)
[2025-07-31] MEDS: fentaNYL CITRATE/NaCl 1,000 MCG in IV 1 EA IV SCH (05:57)
[2025-07-31 06:53] LABS: CALCIUM LEVEL 7.7 MG/DL (8.5-10.1); CARBON DIOXIDE LEVEL 18.0 MMOL/L (20-31); CHLORIDE LEVEL 111.0 MMOL/L (98-107); CREATININE FOR GFR 1.57 MG/DL (0.55-1.30); GLOMERULAR FILTRATION RATE 42.8 (>60); POTASSIUM SERUM 6.1 MMOL/L (3.5-5.1); SODIUM LEVEL 144.0 MMOL/L (136-145)
[2025-07-31] MEDS: NS (Normal Saline) 0.9% 1,000 ML IV SCH (06:54)
[2025-07-31] MEDS: LanTUS (INSULIN GLARGINE INJ) 1 UNITS/0.01 ML SC ONE ×2 (06:57→08:08)
[2025-07-31] MEDS: CALCIUM GLUCONATE 1,000 MG in DEXTROSE 5% (D5W) MINI-BAG PLU 100 ML IV ONE (08:08)
[2025-07-31] MEDS: MAG SULF 1GM/100ML (MAG RUN) 1 GM in IV 1 EA IV ONE (08:09)
[2025-07-31 10:20] LABS: VENOUS BASE EXCESS -7.4 (-2.0-2.0); VENOUS HCO3 17.8 MMOL/L (23.0-27.0); VENOUS O2 SATURATION 99.4 % (60.0-80.0); VENOUS PARTIAL PRESSURE CO2 35.3 mmHg (38.0-50.0); VENOUS PARTIAL PRESSURE O2 250.6 mmHg (30.0-50.0); VENOUS PH 7.320 UNITS (7.330-7.430); VENOUS STANDARD HCO3 18.5 MMOL/L; VENOUS TOTAL CO2 18.9 MMOL/L (24.0-28.0)
[2025-07-31 10:33] LABS: PLATELET COUNT, AUTOMATED 189 10^3/uL (150-450)
[2025-07-31 10:38] LABS: CALCIUM LEVEL 8.2 MG/DL (8.5-10.1); CARBON DIOXIDE LEVEL 21.0 MMOL/L (20-31); CHLORIDE LEVEL 110.0 MMOL/L (98-107); CREATININE FOR GFR 1.69 MG/DL (0.55-1.30); GLOMERULAR FILTRATION RATE 39.2 (>60); POTASSIUM SERUM 5.4 MMOL/L (3.5-5.1); SODIUM LEVEL 143.0 MMOL/L (136-145)
[2025-07-31] MEDS ORDERED: PROPOFOL 1,000 MG/100 ML VIAL As Ordered ONE (16:56)
[2025-07-31] MEDS: MIDAZOLAM INJ 2 MG/2 ML VIAL IV PRN (16:57)
[2025-07-31 17:15] LABS: CALCIUM LEVEL 8.4 MG/DL (8.5-10.1); CARBON DIOXIDE LEVEL 26.0 MMOL/L (20-31); CHLORIDE LEVEL 113.0 MMOL/L (98-107); CREATININE FOR GFR 1.7 MG/DL (0.55-1.30); GLOMERULAR FILTRATION RATE 38.9 (>60); PHOSPHORUS LEVEL 3.1 MG/DL (2.5-4.9); POTASSIUM SERUM 4.7 MMOL/L (3.5-5.1); SODIUM LEVEL 147.0 MMOL/L (136-145)
[2025-07-31] MEDS ORDERED: DEXTROSE 50% 50 ML SYRINGE IV PRN (17:40)
[2025-07-31] MEDS ORDERED: GLUCAGON INJ 1 MG VIAL SC PRN (17:40)
[2025-07-31] MEDS ORDERED: GLUCOSE 4 GM CHEW PO PRN (17:40)
[2025-07-31] MEDS: MIDAZOLAM INJ 2 MG/2 ML VIAL IV STA (17:52)
[2025-07-31] MEDS: INSULIN LISPRO (NovoLOG) PER UNIT SC SCH (18:27)
[2025-07-31] MEDS: NS 0.45% 1,000 ML IV SCH (19:56)
[2025-07-31 21:44] LABS: URINE PREG TEST NEGATIVE (NEGATIVE)
[2025-08-01] VITALS (28 sets, daily range): BP systolic 83–160; BP diastolic 51–99; TEMP 98.2–99.7; O2SAT 95–100
[2025-08-01 05:20] LABS: BASO # 0.0 10^3/uL (0.0-0.2); BASO % 0.2 % (0.0-1.0); EOS # 0.0 10^3/uL (0.0-0.5); EOS % 0.1 % (0.0-3.0); LYMPH # 1.4 10^3/uL (1.5-5.0); LYMPH % 15.5 % (24.0-44.0); MONO # 0.4 10^3/uL (0.0-0.8); MONO % 4.8 % (2.0-8.0); NEUTROPHILS # 7.1 10^3/uL (1.5-8.5); NEUTROPHILS % 79.2 % (36.0-66.0); PLATELET COUNT, AUTOMATED 151 10^3/uL (150-450)
[2025-08-01 05:57] LABS: ALT/SGPT 17.0 U/L (7.0-40); AST/SGOT 36.0 U/L (<34); CALCIUM LEVEL 8.0 MG/DL (8.5-10.1); CARBON DIOXIDE LEVEL 24.0 MMOL/L (20-31); CHLORIDE LEVEL 113.0 MMOL/L (98-107); CREATININE FOR GFR 1.54 MG/DL (0.55-1.30); GLOMERULAR FILTRATION RATE 43.8 (>60); PHOSPHORUS LEVEL 3.3 MG/DL (2.5-4.9); POTASSIUM SERUM 4.1 MMOL/L (3.5-5.1); SODIUM LEVEL 147.0 MMOL/L (136-145)
[2025-08-01] MEDS ORDERED: dexmedeTOMidine 200 MCG in IV 1 EA IV STA (08:40)
[2025-08-01] MEDS: dexmedeTOMidine 200 MCG in IV 1 EA IV SCH (09:05)
[2025-08-01] MEDS: LanTUS (INSULIN GLARGINE INJ) 1 UNITS/0.01 ML SC SCH (09:28)
[2025-08-01 10:55] LABS: AMPHETAMINES LEVEL URINE NEGATIVE (NEGATIVE); BARBITURATES URINE NEGATIVE (NEGATIVE); CANNABINOIDS URINE NEGATIVE (NEGATIVE); COCAINE METABOLITE URINE NEGATIVE (NEGATIVE); METHADONE URINE NEGATIVE (NEGATIVE); OPIATES URINE NEGATIVE (NEGATIVE); PHENCYCLIDINE URINE NEGATIVE (NEGATIVE)
[2025-08-01 10:57] LABS: BENZODIAZEPINES URINE POSITIVE (NEGATIVE)
[2025-08-01] MEDS: THIAMINE 200MG 2ML VIAL IM SCH (12:00)
[2025-08-01] MEDS: LR 1,000 ML IV SCH (16:43)
[2025-08-02] VITALS (17 sets, daily range): BP systolic 91–127; BP diastolic 60–91; TEMP 97–99; O2SAT 93–100
[2025-08-02 05:45] LABS: BASO # 0.0 10^3/uL (0.0-0.2); BASO % 0.5 % (0.0-1.0); EOS # 0.1 10^3/uL (0.0-0.5); EOS % 1.6 % (0.0-3.0); LYMPH # 1.1 10^3/uL (1.5-5.0); LYMPH % 19.4 % (24.0-44.0); MONO # 0.3 10^3/uL (0.0-0.8); MONO % 5.3 % (2.0-8.0); NEUTROPHILS # 4.1 10^3/uL (1.5-8.5); NEUTROPHILS % 73.0 % (36.0-66.0); PLATELET COUNT, AUTOMATED 119 10^3/uL (150-450)
[2025-08-02 06:10] LABS: ALT/SGPT 39.0 U/L (7.0-40); AST/SGOT 154.0 U/L (<34); CALCIUM LEVEL 8.0 MG/DL (8.5-10.1); CARBON DIOXIDE LEVEL 24.0 MMOL/L (20-31); CHLORIDE LEVEL 115.0 MMOL/L (98-107); CREATININE FOR GFR 1.08 MG/DL (0.55-1.30); GLOMERULAR FILTRATION RATE 67.0 (>60); MAGNESIUM LEVEL 2.0 MG/DL (1.8-2.4); PHOSPHORUS LEVEL 3.1 MG/DL (2.5-4.9); POTASSIUM SERUM 4.3 MMOL/L (3.5-5.1); SODIUM LEVEL 147.0 MMOL/L (136-145)
[2025-08-02] MEDS ORDERED: LanTUS (INSULIN GLARGINE INJ) 1 UNITS/0.01 ML SC SCH (13:15)
[2025-08-02] MEDS: LanTUS (INSULIN GLARGINE INJ) 1 UNITS/0.01 ML SC SCH (20:48)
[2025-08-03] VITALS: BP 115/83; TEMP 97.2; O2SAT 97
[2025-08-03 04:00] VITALS: BP 108/77; TEMP 97.5; O2SAT 95
[2025-08-03 06:27] LABS: ALT/SGPT 39.0 U/L (7.0-40); AST/SGOT 98.0 U/L (<34); CALCIUM LEVEL 7.8 MG/DL (8.5-10.1); CARBON DIOXIDE LEVEL 27.0 MMOL/L (20-31); CHLORIDE LEVEL 111.0 MMOL/L (98-107); CREATININE FOR GFR 0.9 MG/DL (0.55-1.30); GLOMERULAR FILTRATION RATE 83.4 (>60); PLATELET COUNT, AUTOMATED 119 10^3/uL (150-450); POTASSIUM SERUM 3.5 MMOL/L (3.5-5.1); SODIUM LEVEL 145.0 MMOL/L (136-145)
[2025-08-03 07:46] VITALS: BP 111/80; TEMP 98.7; O2SAT 98
[2025-08-03] MEDS: LanTUS (INSULIN GLARGINE INJ) 1 UNITS/0.01 ML SC SCH (09:03)
[2025-08-03] MEDS: PANTOPRAZOLE 40MG TAB PO SCH (09:03)
[2025-08-03] MEDS: THIAMINE 100 MG TAB PO SCH (09:03)
[2025-08-03 11:38] VITALS: BP 115/80; TEMP 97.1; O2SAT 99
[2025-08-03 14:55] VITALS: BP 107/76; TEMP 98.2; O2SAT 98
[2025-08-03] MEDS: INSULIN LISPRO (NovoLOG) PER UNIT SC SCH ×2 (17:45→20:13)
[2025-08-03 20:00] VITALS: BP 110/63; TEMP 98.4; O2SAT 98
[2025-08-04 04:46] VITALS: BP 117/71; TEMP 98.4; O2SAT 98
[2025-08-04] MEDS ORDERED: FLUCONAZOLE 50 MG TABLET PO ONE (13:00)
[2025-08-04] MEDS ORDERED: LANTINJ4 SC (13:18)
[2025-08-04 13:21] LABS: ALT/SGPT 45 U/L (7.0-40); AST/SGOT 99 U/L (<34); CALCIUM LEVEL 7.9 MG/DL (8.5-10.1); CARBON DIOXIDE LEVEL 26 MMOL/L (20-31); CHLORIDE LEVEL 108 MMOL/L (98-107); CREATININE FOR GFR 0.72 MG/DL (0.55-1.30); GLOMERULAR FILTRATION RATE > 90.0 (>60); POTASSIUM SERUM 4.6 MMOL/L (3.5-5.1); SODIUM LEVEL 145 MMOL/L (136-145)
== END 2025-08-04 13:48 | disposition left against medical advice (07) | DRG 720 ==
LOC: M ED 10:54 → EDBD 10:54 → M ED INP 14:22 → M ICU 15:16 → M MSPAV 08-03 14:49
PROVIDERS: ADMIT Internal Medicine Pulmonary Disease; ATTEND Student in an Organized Health Care Education/Training Program
PROC: 02HV33Z Insertion of Infusion Device into Superior Vena Cava, Percutaneous Approach (ICD-10-PCS; principal; 2025-07-30)
PROC: 5A1945Z Respiratory Ventilation, 24-96 Consecutive Hours (ICD-10-PCS; 2025-07-30)
PROC: 0BH17EZ Insertion of Endotracheal Airway into Trachea, Via Natural or Artificial Opening (ICD-10-PCS; 2025-07-30)
DX: A41.9 Sepsis, unspecified organism (principal); E11.11 Type 2 diabetes mellitus with ketoacidosis with coma; J18.9 Pneumonia, unspecified organism; N17.9 Acute kidney failure, unspecified; E87.5 Hyperkalemia; E87.1 Hypo-osmolality and hyponatremia; E87.6 Hypokalemia; B34.8 Other viral infections of unspecified site; N39.0 Urinary tract infection, site not specified; Z79.4 Long term (current) use of insulin; Z79.899 Other long term (current) drug therapy; J98.11 Atelectasis; I10 Essential (primary) hypertension; K52.9 Noninfective gastroenteritis and colitis, unspecified; B96.20 Unspecified Escherichia coli [E. coli] as the cause of diseases classified elsewhere

== ENCOUNTER → 2025-08-06 | Outpatient (REF) | payer MEDICAID ==
[2025-08-06 19:05] LABS: CALCIUM LEVEL 7.7 MG/DL (8.5-10.1); CARBON DIOXIDE LEVEL 32 MMOL/L (20-31); CHLORIDE LEVEL 103 MMOL/L (98-107); CREATININE FOR GFR 0.74 MG/DL (0.55-1.30); GLOMERULAR FILTRATION RATE > 90.0 (>60); MAGNESIUM LEVEL 1.7 MG/DL (1.8-2.4); POTASSIUM SERUM 3.4 MMOL/L (3.5-5.1); SODIUM LEVEL 141 MMOL/L (136-145)
[2025-08-06 19:08] LABS: BASO # 0.0 10^3/uL (0.0-0.2); BASO % 0.3 % (0.0-1.0); EOS # 0.2 10^3/uL (0.0-0.5); EOS % 4.6 % (0.0-3.0); LYMPH # 1.3 10^3/uL (1.5-5.0); LYMPH % 33.4 % (24.0-44.0); MONO # 0.3 10^3/uL (0.0-0.8); MONO % 8.2 % (2.0-8.0); NEUTROPHILS # 2.1 10^3/uL (1.5-8.5); NEUTROPHILS % 53.2 % (36.0-66.0); PLATELET COUNT, AUTOMATED 213 10^3/uL (150-450)
== END ==
LOC: M LAB REF 16:09
PROVIDERS: ATTEND Family Medicine Addiction Medicine
DX: E83.42 Hypomagnesemia (principal); E10.9 Type 1 diabetes mellitus without complications